=== PATIENT | female | born 1990 | race African-American/Black ===

== ENCOUNTER 2017-01-22 17:07 | Emergency (ER) | payer BC ==
[2017-01-22 17:16] VITALS: BMI 37.0
[2017-01-22 18:02] LABS: URINE APPEARANCE CLEAR; URINE BILIRUBIN NEGATIVE (NEGATIVE); URINE BLOOD 1+ (NEGATIVE); URINE COLOR YELLOW; URINE GLUCOSE (UA) NEGATIVE (NEGATIVE); URINE KETONE NEGATIVE (NEGATIVE); URINE LEUK ESTERASE NEGATIVE (NEGATIVE); URINE NITRITE NEGATIVE (NEGATIVE); URINE PROTEIN NEGATIVE (NEGATIVE)
[2017-01-22 18:09] LABS: URINE MUCUS RARE; URINE RBC 6 /hpf (0-3); URINE WBC 2 /hpf (3-5)
[2017-01-22 18:43] LABS: BASOPHIL 1.2 % (0-2.0); EOSINOPHIL 2.1 % (0-4.5); MCH 25.7 pg (25.7-33.7); MCHC 33.5 g/dl (32.0-36.0); MEAN CELL VOLUME 76.7 fl (80-96); MEAN PLT VOLUME 8.9 fl (7.5-11.1); NEUTROPHILS 53.8 % (42.8-82.8); PLATELET COUNT 349 K/MM3 (134-434); WHITE BLOOD COUNT 9.1 K/mm3 (4.0-10.0)
--- NOTE | 2017-01-22 18:59 | PDOC ---
History of Present Illness - General Chief Complaint: Lightheaded Stated Complaint: NASAL BLEEDING Time Seen by Provider: 01/22/17 18:58 - History of Present Illness Initial Comments: 01/22/17 19:33 Patient is a 26-year-old female with past medical history of right-sided ovarian cyst who presents to the emergency department today complaining of generalized abdominal pain. Patient states that she has a cyst on her left side which she calls a fat cyst and she states that this is the source of her pain. She currently rates her pain a 3 out of 10. She states that the pain is colicky in nature and comes and goes. Her pain has been occurring for approximately 24- 48 hours. She states that she is also lightheaded and that her head feels heavy. She states that she also feels like she cannot urinate. She denies that the room is spinning. Denies nausea and vomiting. Denies fevers, chills, cough, shortness of breath, chest pain, hematuria, dysuria, urgency. Past History - Travel Traveled outside of the country in the last 30 days: No Close contact w/someone who was outside of country & ill: No - Past Medical History Allergies/Adverse Reactions: Allergies Allergy/AdvReac Type Severity Reaction Status Date / Time No Known Allergies Allergy Verified 01/22/17 17:12 Home Medications: Ambulatory Orders NK [No Known Home Medication] 01/22/17 Other medical history: DENIES. - Psycho/Social/Smoking Cessation Hx Suicidal Ideation: No Smoking History: Never smoked Review of Systems - Review of Systems Constitutional: No: Chills, Fever, Malaise, Weakness Respiratory: No: Cough, Shortness of Breath, Wheezing Cardiac (ROS): Yes: Lightheadedness. No: Chest Pain, Palpitations, Syncope, Chest Tightness ABD/GI: Yes: Abdominal cramping. No: Constipated, Diarrhea, Nausea, Vomiting : Yes: Pain (R sided abd pain, cyst related?). No: Burning, Dysuria, Discharge, Frequency, Hematuria Neurological: Yes: Dizziness. No: Headache, Numbness, Paresthesia, Weakness All Other Systems: Reviewed and Negative *Physical Exam - Vital Signs Last Vital Signs Temp Pulse Resp BP Pulse Ox 98.5 F 71 19 143/74 100 01/22/17 17:12 01/22/17 17:12 01/22/17 17:12 01/22/17 17:12 01/22/17 17:12 - Physical Exam Comments: 01/22/17 19:34 GENERAL: Well developed, well nourished. Awake and alert. No acute distress, laying on exam bed. HEENT: Normocephalic, atraumatic. PERRLA, EOMI. No conjunctival pallor. Sclera are non- icteric. Moist mucous membranes. Oropharynx is clear. NECK: Supple. Full ROM. No JVD. Carotid pulses 2+ and symmetric, without bruits. No thyromegaly. No lymphadenopathy. CARDIOVASCULAR: Regular rate and rhythm. No murmurs, rubs, or gallops. Distal pulses are 2+ and symmetric. PULMONARY: No evidence of respiratory distress. Lungs clear to auscultation bilaterally. No wheezing, rales or rhonchi. ABDOMINAL: Abdomen is diffusely tender with point tenderness in the epigastric region. Also tender to paplation of the r inguinal region.Soft. Non-distended. No rebound or guarding. No organomegaly. Normoactive bowel sounds. MUSCULOSKELETAL Normal range of motion at all joints. No bony deformities or tenderness. No CVA tenderness. EXTREMITIES: No cyanosis. No clubbing. No edema. No calf tenderness. SKIN: Warm and dry. Normal capillary refill. No rashes. No jaundice. NEUROLOGICAL: Alert, awake, appropriate. Cranial nerves 2-12 intact. No deficits to light touch and temperature in face, upper extremities and lower extremities. No motor deficits in the in face, upper extremities and lower extremities. Normoreflexic in the upper and lower extremities. Normal speech. Toes are down- going bilaterally. Gait is normal without ataxia. PSYCHIATRIC: Cooperative. Good eye contact. Appropriate mood and affect. ED Treatment Course - LABORATORY CBC & Chemistry Diagram: 01/22/17 18:32 01/22/17 18:32 - ADDITIONAL ORDERS Additional order review: Laboratory Results 01/22/17 17:50 Urine Color Yellow Urine Appearance Clear Urine pH 5.0 Urine Protein Negative Urine Glucose (UA) Negative Urine Ketones Negative Urine Blood 1+ H Urine Nitrite Negative Urine Bilirubin Negative Urine Urobilinogen 2.0 H Ur Leukocyte Esterase Negative Urine RBC 6 Urine WBC 2 Ur Epithelial Cells Rare Urine Mucus Rare Urine HCG, Qual Negative Medical Decision Making - Medical Decision Making 01/22/17 19:41 Patient is a 26-year-old female with past medical history of right-sided ovarian cyst who presents to the emergency department today complaining of generalized abdominal pain. Patient's pain is generalized and could be from multiple causes. Diagnosis includes but not limited to ovarian cyst rupture, hernia, diverticulitis, appendicitis. We will order broad workup at this time. 1. CBC, CMP, lipase, UA, Upregnancy 2. fluids, ibuprofen 3. CT of abdomen and pelvis, transvaginal ultrasound 4. re-evaluate 01/22/17 22:18 Transvaginal ultrasound shows a normal appearing uterus and L ovary. Slightly hyperechoic masslike lesion in the right ovary/adnexa measuring approximately 3 cm with vascular flow suggestive of a mass. Further characterization with MRI of the pelvis as needed to evaluate for fatty tissue/dermoid among other possibilities. CT-scan: Hyperdense mass lesion in the right knee pelvis/adnexa measuring 4.3 cm in maximum dimension that appeared echogenic vascular mass in the right ovary on a prior pelvis ultrasound done earlier today. Further characterization with the MRI of the pelvis is recommended. 01/23/17 00:49 Lab work is unremarkable at this time and her urine is clean. Patient states that her pain is controlled with ibuprofen. She feels better after resting. Patient was informed of her ultrasound and CAT scan reports. She was told she is to follow-up with her DIGITAL TECHNICIAN within 1 week as this mass needs further workup. Explained it was a very unlikely circumstance but there is a possibility that this mass could be cancer. It was stressed that she should follow up with her DIGITAL TECHNICIAN as soon as she can. She was given a copy of her report. Patient feels comfortable with discharge at this time. She understands that she does need to follow-up. Explained that she should take Motrin as needed for pain. All questions were answered at this time and patient understands all discharge instructions. *DC/Admit/Observation/Transfer Diagnosis at time of Disposition: Ovarian mass, right - Discharge Dispostion Disposition: HOME Condition at time of disposition: Improved Admit: No - Referrals Referrals: Martínez Larson MD [Primary Care Provider] - Sebastian Santiago [Non Staff, Medical] - - Patient Instructions Printed Discharge Instructions: DI for Abdominal Pain-Adult Additional Instructions: You scans today showed a mass/cyst on your right ovary. You need to follow up with your DIGITAL TECHNICIAN doctor (Dr. Santiago) on Wednesday for further work up and cancer should be ruled out. You were given a copy of your report. You may take ibuprofen as needed for pain. You may take up to 3,000 mg a day. Take this medication with food. Return to the ED if you have worsening pain, lightheadedness, fevers, chills, nausea, or any changes in your symptoms.
[2017-01-22 19:04] LABS: ALBUMIN 3.5 g/dl (3.4-5.0); ALK PHOS 109 U/L (45-117); ANION GAP 6 (8-16); BILIRUBIN,TOTAL 0.2 mg/dL (0.2-1.0); CALCIUM 8.9 mg/dL (8.5-10.1); CO2 29 mmol/L (21-32); CREATININE 0.6 mg/dL (0.55-1.02); GLUCOSE,RANDOM 94 mg/dL (74-106); SGOT/AST 20 U/L (15-37); SGPT/ALT 35 U/L (12-78); TOT PROT 7.1 g/dl (6.4-8.2)
[2017-01-22] MEDS ORDERED: SODIUM CHLORIDE 1,000 ML IV STA (19:16)
[2017-01-22] MEDS ORDERED: IBUPROFEN 600 MG TABLET (FP) PO ONE ×2 (19:16→19:20)
--- NOTE | 2017-01-22 20:00 | PDOC ---
Attending Attestation - Resident Resident Name: ViktoriyarosamariaMercedez - ED Attending Attestation I have performed the following: I have examined & evaluated the patient, The case was reviewed & discussed with the resident, I agree w/resident's findings & plan, Exceptions are as noted - HPI HPI: 01/22/17 19:56 26-year-old female with no medical history presents with lower abdominal pain starting this morning. Patient reports diffuse lower abdominal pain with cramping this. Denies dysuria. Denies fevers or chills. Came into the ED for further evaluation. Patient reports that she is currently on her period now and has a history of ovarian cysts. - Physicial Exam PE: 01/22/17 19:57 GENERAL: Awake, alert, and fully oriented, in no acute distress. HEAD: No signs of trauma EYES: PERRLA, EOMI, sclera anicteric, conjunctiva clear ENT: Auricles normal inspection, hearing grossly normal, nares patent, oropharynx clear without exudates. NECK: Normal ROM, supple, no lymphadenopathy, JVD, or masses LUNGS: Breath sounds equal, clear to auscultation bilaterally. No wheezes, and no crackles HEART: Regular rate and rhythm, normal S1 and S2, no murmurs, rubs or gallops ABDOMEN: TTP LLQ, suprapubic, RLQ. Soft, normoactive bowel sounds. No guarding , no rebound. No masses EXTREMITIES: Normal range of motion, no edema. No clubbing or cyanosis. No cords, erythema, or tenderness NEUROLOGICAL: Cranial nerves II through XII grossly intact. Normal speech, normal gait SKIN: Warm, Dry, normal turgor, no rashes or lesions noted. - Medical Decision Making 01/22/17 19:58 Vital Signs Temp Pulse Resp BP Pulse Ox 98.5 F 55 L 17 116/76 100 01/22/17 17:12 01/22/17 19:18 01/22/17 19:18 01/22/17 19:18 01/22/17 19:18 26-year-old female lower abdominal pain. Differential includes appendicitis versus ovarian cyst rupture. We'll obtain labs, urinalysis. Patient is urine test negative. Patient should receive a CAT scan the abdomen pelvis and transvaginal ultrasound.
[2017-01-22 23:31] VITALS: BP 127/85; PULSE 61; TEMP 98.2
== END 2017-01-22 23:31 | disposition home or self-care (01) ==
LOC: JER 17:07
PROC: 3E0337Z Introduction of Electrolytic and Water Balance Substance into Peripheral Vein, Percutaneous Approach (ICD-10-PCS; principal; 2017-01-22)
DX: N83.8 Other noninflammatory disorders of ovary, fallopian tube and broad ligament (principal)
CPT/HCPCS: 36415; 74177-TC; 76830-TC; 80053; 81003; 81015; 83690; 84703; 85025; 99284-25

== ENCOUNTER 2017-09-21 04:02 | Observation (INO) | payer BC, OTHER ==
[2017-09-21 04:25] VITALS: BMI 28.3
--- NOTE | 2017-09-21 04:25 | PDOC ---
History of Present Illness - General Chief Complaint: Pain, Acute Stated Complaint: ABD PAIN 16 WEEKS Time Seen by Provider: 09/21/17 04:11 - History of Present Illness Initial Comments: 09/21/17 04:24 Patient is a 27 year old female @ a self-reported 16 weeks gestation and PMH of fibroids presents with a two day h/o of abdominal cramping. Patient states the cramping is constant, diffuse, exacerbated by movement (5/10 @ rest, 10/10 w/movement). Denies any associated vaginal bleeding, nausea/vomiting, diarrhea/constipation, dysuria/hematuria as well as fevers/chills. OB-[employer] in [place], most recent evaluation earlier this month at which time she was told everything was normal. Patient denies any chest pain, shortness of breath, recent travel or sick contacts. As per EMR, patient evaluated at our facility in 01/14 @ [address] time abdominal CT showed R adenxal mass. Past History - Past Medical History Allergies/Adverse Reactions: Allergies Allergy/AdvReac Type Severity Reaction Status Date / Time No Known Allergies Allergy Verified 01/22/17 17:12 Home Medications: Ambulatory Orders NK [No Known Home Medication] 01/22/17 - Suicide/Smoking/Psychosocial Hx Smoking History: Never smoked Have you smoked in the past 12 months: No Information on smoking cessation initiated: No Hx Alcohol Use: No Drug/Substance Use Hx: No Review of Systems - Review of Systems Constitutional: No: Chills, Fever HEENTM: No: Recent change in vision Respiratory: No: Cough, Shortness of Breath Cardiac (ROS): No: Chest Pain, Lightheadedness, Palpitations, Syncope ABD/GI: No: Constipated, Diarrhea, Nausea, Vomiting : No: Burning, Dysuria *Physical Exam - Vital Signs Last Vital Signs Temp Pulse Resp BP Pulse Ox 97.5 F L 82 20 122/63 97 09/21/17 04:22 09/21/17 04:22 09/21/17 04:22 09/21/17 04:22 09/21/17 04:22 - Physical Exam General Appearance: Yes: Nourished, Appropriately Dressed HEENT: positive: EOMI Neck: positive: Trachea midline, Supple Respiratory/Chest: positive: Lungs Clear Cardiovascular: positive: S1, S2. negative: Edema, JVD Vascular Pulses: Dorsalis-Pedis (R): 2+, Doralis-Pedis (L): 2+ Gastrointestinal/Abdominal: positive: Normal Bowel Sounds, Soft, Tenderness ( diffuse abdominal TTP, (-) guarding, (-) rebound), Other (Uterine fundus above pubic symphysis) Musculoskeletal: negative: CVA Tenderness (R), CVA Tenderness (L) Extremity: positive: Normal Capillary Refill, Normal Inspection Integumentary: positive: Normal Color, Dry, Warm Neurologic: positive: Fully Oriented, Alert ED Treatment Course - LABORATORY CBC & Chemistry Diagram: 09/21/17 05:00 09/21/17 05:00 Medical Decision Making - Medical Decision Making 09/21/17 04:32 27 year old female @ self-reported 16 weeks gestation presents with abdominal cramping without vaginal bleeding. Physical exam significant for diffuse abdominal tenderness, Mckenna's sign equivocal. Willl obtain basic labs, belly labs UA, Type and Screen as well as abdominal U/S. Reassess. 09/21/17 05:35 WBC 11.5, CMP and belly labs pending. 09/21/17 06:06 Lipase wnL, Lactic Acid 1.0. UA pending. Patient resting comfortably. Will plan for abdominal U/S. 09/21/17 06:46 CMP unremarkable. UA clean. T/S pending to assess incidental need for Rhogram. B-HCG 28,566 c/w patient's reported gestational age. Patient to be signed out to day team with plan for abdominal and U/S. 09/21/17 07:17 Patient signed out to Dr. Jacinto (Resident) and Dr. Parnell (Attending) *DC/Admit/Observation/Transfer Diagnosis at time of Disposition: Abdominal pain - Referrals Referrals: Martínez Larson MD [Primary Care Provider] - - Patient Instructions - Post Discharge Activity
--- NOTE | 2017-09-21 04:53 | PDOC ---
Attending Attestation - Resident Resident Name: Maddy Prado - ED Attending Attestation I have performed the following: I have examined & evaluated the patient, The case was reviewed & discussed with the resident, I agree w/resident's findings & plan, Exceptions are as noted - HPI HPI: 09/21/17 04:50 27y F @ at approx 4 months gestation presents with abd pain/cramping x 2 days no associated fever/chills, n/v, diarrhea, dysuria, cp, sob, vag bleeding. on exam pt in n odistress but does have mild diffuse abd tenderness w/o erbound/ guarding ddx includes cholecystits, appendicits, cramping, will ck labs will ck US ua o r/o UTI will reassess - Physicial Exam PE: 09/23/17 17:35 see above - Medical Decision Making pt signed out to day team to reassess the pt and fu with US results
[2017-09-21 05:21] LABS: BASO % 0.7 % (0-2.0); EOS % 1.3 % (0-4.5); HEMATOCRIT 33.9 % (32.4-45.2); HEMOGLOBIN 11.6 GM/dL (10.7-15.3); LYMPH % 16.9 % (8-40); MCHC 34.1 g/dl (32.0-36.0); MEAN CELL VOLUME 76.3 fl (80-96); MONO % 8.1 % (3.8-10.2); PLATELET COUNT 383 K/MM3 (134-434); RBC 4.44 M/mm3 (3.60-5.2); RDW 14.7 % (11.6-15.6); WHITE BLOOD COUNT 11.5 K/mm3 (4.0-10.0)
[2017-09-21 05:22] LABS: URINE APPEARANCE CLEAR; URINE BILIRUBIN NEGATIVE (<2.0 mg/dL); URINE BLOOD NEGATIVE (NEGATIVE); URINE COLOR LTYELLOW; URINE GLUCOSE (UA) NEGATIVE (NEGATIVE); URINE KETONE NEGATIVE (NEGATIVE); URINE LEUK ESTERASE NEGATIVE (NEGATIVE); URINE NITRITE NEGATIVE (NEGATIVE); URINE PROTEIN NEGATIVE (NEGATIVE); URINE UROBILINOGEN NEGATIVE mg/dL (0.2-1.0)
[2017-09-21 05:55] LABS: ANION GAP 11 (8-16); BILIRUBIN,TOTAL 0.2 mg/dL (0.2-1.0); BLOOD UREA NITROGEN 6 mg/dL (7-18); CALCIUM 8.6 mg/dL (8.5-10.1); CHLORIDE 105 mmol/L (98-107); CO2 23 mmol/L (21-32); CREATININE 0.5 mg/dL (0.55-1.02); GLUCOSE,RANDOM 95 mg/dL (74-106); POTASSIUM 3.9 mmol/L (3.5-5.1); SGOT/AST 21 U/L (15-37); SGPT/ALT 36 U/L (12-78); SODIUM 139 mmol/L (136-145); TOT PROT 6.8 g/dl (6.4-8.2)
[2017-09-21 06:11] LABS: ALK PHOS 89 U/L (45-117)
[2017-09-21] MEDS ORDERED: ACETAMINOPHEN 500 MG TABLET (FP) PO ONE (07:14)
--- NOTE | 2017-09-21 07:25 | PDOC ---
*Physical Exam - Vital Signs Last Vital Signs Temp Pulse Resp BP Pulse Ox 97.5 F L 82 20 122/63 97 09/21/17 04:22 09/21/17 04:22 09/21/17 04:22 09/21/17 04:22 09/21/17 04:22 09/21/17 07:23 Care endorsed to me by Dr. Prado. Patient is a 27 YOF states ~16 wks and now with diffuse lower abdominal pain without VBP or discharge. Awaiting formal US; bedside ED US was not working overnight. Given Tylenol. ED Treatment Course - LABORATORY CBC & Chemistry Diagram: 09/21/17 05:00 09/21/17 05:00 - ADDITIONAL ORDERS Additional order review: Laboratory Results 09/21/17 09/21/17 09/21/17 05:00 05:00 05:00 Sodium 139 Potassium 3.9 Chloride 105 Carbon Dioxide 23 Anion Gap 11 BUN 6 L Creatinine 0.5 L Creat Clearance w eGFR > 60 Random Glucose 95 Lactic Acid 1.0 Calcium 8.6 Total Bilirubin 0.2 AST 21 ALT 36 Alkaline Phosphatase 89 Total Protein 6.8 Albumin 3.0 L Lipase 82 Beta HCG, Quant 10538.8 Urine Color Urine Appearance Urine pH Ur Specific [place] Urine Protein Urine Glucose (UA) Urine Ketones Urine Blood Urine Nitrite Urine Bilirubin Urine Urobilinogen Ur Leukocyte Esterase 09/21/17 05:00 Sodium Potassium Chloride Carbon Dioxide Anion Gap BUN Creatinine Creat Clearance w eGFR Random Glucose Lactic Acid Calcium Total Bilirubin AST ALT Alkaline Phosphatase Total Protein Albumin Lipase Beta HCG, Quant Urine Color Ltyellow Urine Appearance Clear Urine pH 6.0 Ur Specific [place] 1.014 Urine Protein Negative Urine Glucose (UA) Negative Urine Ketones Negative Urine Blood Negative Urine Nitrite Negative Urine Bilirubin Negative Urine Urobilinogen Negative Ur Leukocyte Esterase Negative 09/21/17 05:00 RBC 4.44 MCV 76.3 L MCHC 34.1 RDW 14.7 MPV 9.0 Neutrophils % 73.0 D Lymphocytes % 16.9 D Monocytes % 8.1 Eosinophils % 1.3 Basophils % 0.7 Medical Decision Making - Medical Decision Making 09/21/17 10:49 US notable for IUP appearing uncomplicated; no GB pathology identified. Patient reports still in pain but does not want any pain medication. 09/21/17 11:26 On re-exam patient continued to have RLQ and RUQ ttp, +rebound tenderness. Morphine ordered and patient will start drinking PO contrast in case she goes to CT r/o appendicitis. In the meantime will order formal US r/o appendicitis. 09/21/17 11:[address] Trivedi who will take the OR case if confirmed appendicitis. 09/21/17 14:03 Per radiology report the appendix is not visualized. Patient being taken to CT. *DC/Admit/Observation/Transfer Diagnosis at time of Disposition: Peritonitis, Leiomyoma, Abdominal pain Qualifiers: Abdominal location: right lower quadrant Qualified Code(s): R10.31 - Right lower quadrant pain - Discharge Dispostion Condition at time of disposition: Guarded Admit: Yes - Referrals Referrals: Martínez Larson MD [Primary Care Provider] - - Patient Instructions Printed Discharge Instructions: DI for Appendicitis -- Adult, Appendectomy -- Laparoscopic Surgery Additional Instructions: Postoperative instructions: You had a laparoscopic appendectomy on 09/21/[address] Dev Trivedi of [facility]. Activity: Resume your usual activities gradually, but no heavy exertion or lifting more than 10-15 pounds for 1 month. Remove dressings 48 hours after surgery; sticky tapes underneath will fall off by themselves. You may shower daily starting then, just pat the incision areas dry. Eat lightly at first, but advance to your usual diet as tolerated. Pain: For pain, you may use and alternate Tylenol (acetaminophen) and/or ibuprofen every 6 hours each as needed; this means that you can take one OR the other at 3-hour intervals. If you are prescribed a Tylenol/narcotic combination for severe pain, use it instead of plain Tylenol as needed and switch back when your pain starts decreasing. Do not take more than 4000mg of acetaminophen in a day. Take medications as prescribed or indicated on the labeling. Follow-up: Call Dr. Trivedi' office at [phone] to make your postop appointment (Wednesday ~2 weeks after surgery). Clinic is held in the [facility] on the first floor of [facility]. Call the office if you have: * increasing pain not responsive to pain medication * fever of 101F or higher * vomiting * unusual or increasing bleeding or drainage from wounds * increasing redness or swelling at wound sites * inability to urinate Also, see your primary medical doctor within 1-2 weeks. - Post Discharge Activity
[2017-09-21] MEDS ORDERED: ACETAMINOPHEN 325 MG TABLET (FP) ONE (07:30)
[2017-09-21] MEDS ORDERED: morphine SULFATE 4 MG/ML VIAL ONE (11:26)
[2017-09-21] MEDS ORDERED: morphine CARPU-JECT 4 MG/1 ML DISP.SYRIN IVPUSH ONE (11:27)
--- NOTE | 2017-09-21 11:31 | PDOC ---
*Physical Exam - Vital Signs Last Vital Signs Temp Pulse Resp BP Pulse Ox 97.5 F L 68 20 97/55 100 09/21/17 04:22 09/21/17 09:05 09/21/17 04:22 09/21/17 09:05 09/21/17 09:05 - Physical Exam Comments: 09/21/17 11:29 alert, well appearing but with discomfort abd gravid. soft/nd. tender with guarding and rebound to the [facility] ED Treatment Course - LABORATORY CBC & Chemistry Diagram: 09/21/17 05:00 09/21/17 05:00 - ADDITIONAL ORDERS Additional order review: Laboratory Results 09/21/17 09/21/17 09/21/17 05:00 05:00 05:00 Sodium Potassium Chloride Carbon Dioxide Anion Gap BUN Creatinine Creat Clearance w eGFR Random Glucose Lactic Acid 1.0 Calcium Total Bilirubin AST ALT Alkaline Phosphatase Total Protein Albumin Lipase 82 Beta HCG, Quant Urine Color Urine Appearance Urine pH Ur Specific [place] Urine Protein Urine Glucose (UA) Urine Ketones Urine Blood Urine Nitrite Urine Bilirubin Urine Urobilinogen Ur Leukocyte Esterase Blood Type O POSITIVE Antibody Screen Negative 09/21/17 09/21/17 05:00 05:00 Sodium 139 Potassium 3.9 Chloride 105 Carbon Dioxide 23 Anion Gap 11 BUN 6 L Creatinine 0.5 L Creat Clearance w eGFR > 60 Random Glucose 95 Lactic Acid Calcium 8.6 Total Bilirubin 0.2 AST 21 ALT 36 Alkaline Phosphatase 89 Total Protein 6.8 Albumin 3.0 L Lipase Beta HCG, Quant 30257.8 Urine Color Ltyellow Urine Appearance Clear Urine pH 6.0 Ur Specific [place] 1.014 Urine Protein Negative Urine Glucose (UA) Negative Urine Ketones Negative Urine Blood Negative Urine Nitrite Negative Urine Bilirubin Negative Urine Urobilinogen Negative Ur Leukocyte Esterase Negative Blood Type Antibody Screen 09/21/17 05:00 RBC 4.44 MCV 76.3 L MCHC 34.1 RDW 14.7 MPV 9.0 Neutrophils % 73.0 D Lymphocytes % 16.9 D Monocytes % 8.1 Eosinophils % 1.3 Basophils % 0.7 - Medications Given in the ED: ED Medications Discontinued Medications Generic Name Dose Route Start Last Admin Trade Name Freq PRN Reason Stop Dose Admin Acetaminophen 975 mg 09/21/17 07:14 09/21/17 07:35 Tylenol - PO 09/21/17 07:15 975 mg ONCE ONE Administration Medical Decision Making - Medical Decision Making 09/21/17 11:29 Received signout on this healthy 27-year-old female with no surgical history at about 16 weeks gestation who presented with vague abdominal complaints and progressive pain since last night. Labs are within normal limits, plan at sign out was to check and right upper quadrant ultrasound and reassess. Patient's pain has continued to progress, she is now having peritoneal findings in the right lower quadrant. Presentation is concerning for appendicitis and , warrants further imaging. We'll attempt abdominal ultrasound to identify the appendix, otherwise should have CAT scan given the emergent nature of appendicitis. Discussed with patient and she agrees Pain control, abdominal ultrasound to identify appendix, CT if unable to identify on ultrasound 09/21/17 15:[address] Trivedi of general surgery and radiology - plan for OR. U/S inconclusive for appendicitis. Will attempt MRI pelvis then proceed with OR. Accepted for obs med/surg. 09/21/17 17:18 At MRI with plans for OR. Discussed with admitting team and OB Dr. Travis. Pt to be admitted to L+D for monitoring. 09/21/17 17:51 After extensive discussion with all members of team: MRI with degenerated superior R uterine fibroid and otherwise normal appearing appendix. Per drapery sewer hand, fibroid could explain patient's presentation. Discussed with Dr. Trivedi and Dr. Travis, will hold on OR for now and proceed with admission for serial exams and pain control. Given gestation of 16 weeks, no indication for constant monitoring per OB. Can admit to med/surg bed under medicine team with OB and Surgery following. Team updated. *DC/Admit/Observation/Transfer Diagnosis at time of Disposition: Peritonitis, Leiomyoma, Abdominal pain Qualifiers: Abdominal location: right lower quadrant Qualified Code(s): R10.31 - Right lower quadrant pain - Discharge Dispostion Condition at time of disposition: Guarded - Referrals - Patient Instructions - Post Discharge Activity
[2017-09-21] MEDS ORDERED: PIPERACILLIN/TAZOB 4.5 GM 4.5 GM in DEXTROSE 5%-WATER 100 ML IVPB ONE (11:55)
[2017-09-21] MEDS ORDERED: PIPERACILLIN/TAZOB 4.5 GM 4.5 GM/100 ML BAG IVPB ONE (12:05)
[2017-09-21] MEDS ORDERED: SODIUM CHLORIDE 0.9% 500 ML INFUS.BAG IV ONE (12:13)
--- NOTE | 2017-09-21 14:54 | CONSULT ---
Consult Consult Specialty:: General Surgery Referred by:: Columba Reason for Consultation:: abdominal pain - History of Present Illness Chief Complaint: Abdominal pain History of Present Illness: 27yo female 16weeks gestation no significant PMH presents to the the ED complaining of 2 days or right lower quadrant pain. She has never had a similar pain. She has a history of right sided uterine fibroids. It was identified in a scan in 2017 subserosal and pedunculated. She reports now pain is focal on the right upper and lower abdomen. She denies any nausea or vomiting. She has not had fever or chills. She has not had any appetitie. Last meal was last evening. We were asked to assess. - History Source History Provided By: Patient, Medical Record Limitations to Obtaining History: No Limitations - Past Medical History Reproductive: Yes: Fibroids. No: Ectopic , Endometriosis, Polycystic Ovary Syndrome, Postmenopausal ...LMP Comment: Certain of ...: Yes (16 wks) ...: 1 ...Para: 0 - Alcohol/Substance Use Hx Alcohol Use: No - Smoking History Smoking history: Never smoked Have you smoked in the past 12 months: No - Social History Place of : [facility] History of Recent Travel: No Home Medications - Allergies Allergies/Adverse Reactions: Allergies Allergy/AdvReac Type Severity Reaction Status Date / Time No Known Allergies Allergy Verified 01/22/17 17:12 - Home Medications Home Medications: Ambulatory Orders NK [No Known Home Medication] 01/22/17 Review of Systems - Review of Systems Constitutional: reports: Loss of Appetite. denies: Chills, Fever Eyes: denies: Blind Spots, Recent Change in Vision HENT: denies: Difficult Swallowing Respiratory: denies: Cough, SOB Gastrointestinal: reports: Abdominal Pain. denies: Constipation, Diarrhea, Nausea, Vomiting Genitourinary: reports: Frequency. denies: Discharge, Dysuria, Menses Breasts: reports: No Symptoms Reported. denies: Pain Neurological: denies: Syncope, Tremors Endocrine: denies: Unexplained Weight Gain, Unexplained Weight Loss Hematology/Lymphatic: denies: Easily Bruised, Excessive Bleeding Psychiatric: denies: Anxiety, Depression Physical Exam Vital Signs: Vital Signs Temperature 97.5 F L 09/21/17 04:22 Pulse Rate 76 09/21/17 12:08 Respiratory Rate 20 09/21/17 04:22 Blood Pressure 94/47 09/21/17 12:08 O2 Sat by Pulse Oximetry (%) 100 09/21/17 09:05 Constitutional: Yes: No Distress, Calm Eyes: Yes: Conjunctiva Clear, EOM Intact HENT: Yes: Atraumatic, Normocephalic Neck: Yes: Supple, Trachea Midline Cardiovascular: Yes: Regular Rate and Rhythm, S1, S2 Respiratory: No: Regular, CTA Bilaterally Gastrointestinal: Yes: Normal Bowel Sounds, Soft, Abdomen, Obese, Tenderness ( RLQ), Tenderness, Rebound (RLQ and RUQ), Other (gravis -3cm below umbilicus,). No: Hematemesis, Hernia, Hypoactive Bowel Sounds, Tenderness, Epigastrium ...Rectal Exam: Yes: Sphincter Tone Normal. No: Hemorrhoids/External, Mass Renal/: No: CVA Tenderness - Left, CVA Tenderness - Right Extremities: No: Cool, Cyanosis Edema: No Peripheral Pulses WNL: Yes Integumentary: No: Bruising, Jaundice, Rash Neurological: Yes: Alert Psychiatric: Yes: Alert, Oriented Labs: CBC, BMP 09/21/17 05:00 09/21/17 05:00 Imaging - Results Ultrasound: Report Reviewed, Image Reviewed (no appendix seen, 7cm right fibroid right anteriro uterus) MRI: Pending, Image Reviewed Problem List - Problems (1) complicated by acute appendicitis Assessment/Plan: 27 yo female 16weeks gestation RLQ pain possible acute appendicitis, leukocytois 11.5, not visualized on US, Adjacent is her peduculated subserosal right uterine fibroid 4.5cm to 7cm over the course of a year. The findings are confounding but the risk of demise during pregnacny has been reported as high as 75%. After discussing this with the patient she understands the risks associated with both non-operative, delayed and operative management. NPO and IVF IV antibiotics (reccomend IV mefoxin) CT scan or MRI to establish diagnosis if possible Pre and post anesthesia heart monitoring Discussed with MEDICAL STAFF PHYSICIAN the plan they agree Discussed at length with patient and mother risks, benefits and alternatives of laparoscopic possible open appendectomy, including but not limited to demise, bleeding, infection, injury to adjacent structures, ventral and incisional hernia, leak or injury, intra-abdominal abscess, need for further procedures, ; alternatives include antibiotics, delayed or no surgery - risks of this include failure of nonoperative therapy, perforation, sepsis, recurrence, demise . Patient desires to proceed with operation - will take to OR for above. Informed consent signed for same. Code(s): O99.619 - DISEASES OF THE DGSTV SYS COMP , UNSP TRIMESTER; K35.80 - UNSPECIFIED ACUTE APPENDICITIS (2) Acute appendicitis with localized peritonitis Code(s): K35.3 - ACUTE APPENDICITIS WITH LOCALIZED PERITONITIS (3) Abdominal pain Code(s): R10.9 - UNSPECIFIED ABDOMINAL PAIN Qualifiers: Abdominal location: right lower quadrant Qualified Code(s): R10.31 - Right lower quadrant pain (4) Ovarian mass, right Code(s): N83.9 - NONINFLAMMATORY DISORD OF OVARY, FALLOP & BROAD LIGMT, UNSP
--- NOTE | 2017-09-21 18:54 | HP ---
CHIEF COMPLAINT: pain abdomen HISTORY OF PRESENT ILLNESS: Patient is a 27 year old female @ a self- reported 16 weeks gestation and PMH of fibroids presents with a two day h/o of abdominal pain cramping in nature, 9/10 in intensity, non radiating, started in left side then moved to right side, constant, get better in lying down position , increases with sitting position. Denies nausea, vomiting, diarrhoea, constipation( last bowel movement yesterday). Denies blood in stool, denies burning micturation, blood in urine. Denies spotting through vagina. Denies fever and chills. OB-[facility] in [place], most recent evaluation earlier this month at which time she was told everything was normal. Patient denies any chest pain, shortness of breath, recent travel or sick contacts. IN ed patient got iv fluid, zosyn. mri and ultrasound ER course was notable for: (1)cbc, cmp, inr (2)mri (3)IV fluid Recent Travel: no PAST MEDICAL HISTORY: fibroid uterus PAST SURGICAL HISTORY: no Social History: Smoking: no Alcohol:no Drugs: no Family History: Allergies no No Known Allergies Allergy (Verified 01/22/17 17:12) HOME MEDICATIONS: Home Medications Medication Instructions Recorded NK [No Known Home Medication] 01/22/17 REVIEW OF SYSTEMS CONSTITUTIONAL: Absent: fever, chills, diaphoresis, generalized weakness, malaise, loss of appetite, weight change HEENT: Absent: rhinorrhea, nasal congestion, throat pain, throat swelling, difficulty swallowing, mouth swelling, ear pain, eye pain, visual changes CARDIOVASCULAR: Absent: chest pain, syncope, palpitations, irregular heart rate, lightheadedness , peripheral edema RESPIRATORY: Absent: cough, shortness of breath, dyspnea with exertion, orthopnea, wheezing, stridor, hemoptysis GASTROINTESTINAL: as above. GENITOURINARY: Absent: dysuria, frequency, urgency, hesitancy, hematuria, flank pain, genital pain MUSCULOSKELETAL: Absent: myalgia, arthralgia, joint swelling, back pain, neck pain SKIN: Absent: rash, itching, pallor HEMATOLOGIC/IMMUNOLOGIC: Absent: easy bleeding, easy bruising, lymphadenopathy, frequent infections ENDOCRINE: Absent: unexplained weight gain, unexplained weight loss, heat intolerance, cold intolerance NEUROLOGIC: Absent: headache, focal weakness or paresthesias, dizziness, unsteady gait, seizure, mental status changes, bladder or bowel incontinence PSYCHIATRIC: Absent: anxiety, depression, suicidal or homicidal ideation, hallucinations. PHYSICAL EXAMINATION Vital Signs - 24 hr 09/21/17 09/21/17 09/21/17 04:22 09:05 12:08 Temperature 97.5 F L Pulse Rate 82 Pulse Rate [ 68 76 Apical] Respiratory 20 Rate Blood Pressure 122/63 Blood Pressure 97/55 94/47 [Left Arm] O2 Sat by Pulse 97 100 Oximetry (%) 09/21/17 16:08 Temperature 95.5 F L Pulse Rate Pulse Rate [ 69 Apical] Respiratory Rate Blood Pressure Blood Pressure 104/53 [Left Arm] O2 Sat by Pulse 95 Oximetry (%) GENERAL: Awake, alert, and fully oriented, in no acute distress. HEAD: Normal with no signs of trauma. EYES: Pupils equal, round and reactive to light, extraocular movements intact, EARS, NOSE, THROAT: Ears normal, nares patent, oropharynx clear without exudates. dry mucous membranes. NECK: Normal range of motion, supple without lymphadenopathy, LUNGS: Breath sounds equal, clear to auscultation bilaterally. HEART: Regular rate and rhythm, normal S1 and S2 without murmur, rub or gallop. ABDOMEN: tender in LLQ, reboundtendernes LLQ, no guarding, no rigidity, MUSCULOSKELETAL: Normal range of motion at all joints. No bony deformities or tenderness. UPPER EXTREMITIES: 2+ pulses, warm, well-perfused. No cyanosis. No clubbing. LOWER EXTREMITIES: 2+ pulses, warm, well-perfused. No calf tenderness. No peripheral edema. NEUROLOGICAL: Cranial nerves II-XII intact. Normal speech. PSYCHIATRIC: Cooperative. Good eye contact. SKIN: Warm, dry, normal turgor, Laboratory Results - last 24 hr 09/21/17 09/21/17 09/21/17 05:00 05:00 05:00 WBC 11.5 H RBC 4.44 Hgb 11.6 Hct 33.9 MCV 76.3 L MCH 26.0 MCHC 34.1 RDW 14.7 Plt Count 383 MPV 9.0 Neutrophils % 73.0 D Lymphocytes % 16.9 D Monocytes % 8.1 Eosinophils % 1.3 Basophils % 0.7 Sodium 139 Potassium 3.9 Chloride 105 Carbon Dioxide 23 Anion Gap 11 BUN 6 L Creatinine 0.5 L Creat Clearance w eGFR > 60 Random Glucose 95 Lactic Acid Calcium 8.6 Total Bilirubin 0.2 AST 21 ALT 36 Alkaline Phosphatase 89 Total Protein 6.8 Albumin 3.0 L Lipase Beta HCG, Quant 73412.8 Urine Color Ltyellow Urine Appearance Clear Urine pH 6.0 Ur Specific Witten 1.014 Urine Protein Negative Urine Glucose (UA) Negative Urine Ketones Negative Urine Blood Negative Urine Nitrite Negative Urine Bilirubin Negative Urine Urobilinogen Negative Ur Leukocyte Esterase Negative Blood Type Antibody Screen 09/21/17 09/21/17 09/21/17 05:00 05:00 05:00 WBC RBC Hgb Hct MCV MCH MCHC RDW Plt Count MPV Neutrophils % Lymphocytes % Monocytes % Eosinophils % Basophils % Sodium Potassium Chloride Carbon Dioxide Anion Gap BUN Creatinine Creat Clearance w eGFR Random Glucose Lactic Acid 1.0 Calcium Total Bilirubin AST ALT Alkaline Phosphatase Total Protein Albumin Lipase 82 Beta HCG, Quant Urine Color Urine Appearance Urine pH Ur Specific Witten Urine Protein Urine Glucose (UA) Urine Ketones Urine Blood Urine Nitrite Urine Bilirubin Urine Urobilinogen Ur Leukocyte Esterase Blood Type O POSITIVE Antibody Screen Negative ASSESSMENT/PLAN: Patient is a 27 year old female @ a self-reported 16 weeks gestation and PMH of fibroids presents with a two day h/o of abdominal pain. MRI shows pedunculated leomyoma with degenrative change. Pain abdomen with 16week : likely from degenrative leomyoma. Pain initially started in rlq then shifted to llq. IV fluid NS 150ml/hr tylenol for pain serial abdominal exam. monitor vitals monitor intake output surgery and ob- sand sifter on case. cbc in morning. MRI reviewed. ob-sand sifter will do a monitoring in am. If pain gets worse or develops tachycardia, call ob-sand sifter. Fluid: 150ml/hr, NS electrolyte: repeat in am nutrition: npo for now dvt pro: scd dispo: med surg. Visit type - Emergency Visit Emergency Visit: Yes ED Registration Date: 09/21/17 Care time: The patient presented to the Emergency Department on the above date and was hospitalized for further evaluation of their emergent condition. - New Patient This patient is new to me today: Yes Date on this admission: 09/21/17 - Critical Care Critical Care patient: No Hospitalist Screening - Colonoscopy Questionnaire Colonoscopy Questionnaire: Colonoscopy Questionnaire - Patient: 50 - 75 years old and never had a screening colonoscopy: Unknown History of colon or rectal polyps, or CA: Unknown History of IBD, Crohn's disease or UC: Unknown History of abdominal radiation therapy as a child: Unknown - Relative: 1 with colon or rectal CA, or polyps at age 60 or younger: Unknown Colon or rectal CA diagnosed at age 45 or younger: Unknown Multiple relatives with colon or rectal CA: Unknown - Outcome: Screening Result: Negative Screen
[2017-09-21] MEDS ORDERED: SODIUM CHLORIDE 1,000 ML IV SCH (19:00)
--- NOTE | 2017-09-21 19:32 | PN ---
Teaching Attending Note Name of Resident: Samuel Smith ATTENDING PHYSICIAN STATEMENT I saw and evaluated the patient. I reviewed the resident's note and discussed the case with the resident. I agree with the resident's findings and plan as documented with exceptions below. SUBJECTIVE: 27 yof with PMhx of uterine fibroid, 16 weeks , admitted with RLQ abdominal pain, and mild LLQ abdominal pain shifting to right, crampy, constant for last 2 days. No nausea, vomiting, fevers, chills, urinary symptoms. Able to tolerate diet well. 12 point ROS done, neg for any vaginal bleed, discharge or new concerns. Currently feels better after being treated in the ED. OBJECTIVE: Vital Signs Period Temp Pulse Resp BP Sys/Skelton Pulse Ox Last 24 Hr 95.5 F-97.5 F 68-82 20 94-122/47-63 95-100 Intake & Output 09/18/17 09/19/17 09/20/17 09/21/17 23:59 23:59 23:59 23:59 Weight 160 lb 0.008 oz GENERAL: Awake, alert, and fully oriented, in no acute distress. HEAD: Normal with no signs of trauma. EYES: Pupils equal, round and reactive to light, extraocular movements intact, sclera anicteric, conjunctiva clear. No lid lag. EARS, NOSE, THROAT: Ears normal, nares patent, oropharynx clear without exudates. Moist mucous membranes. NECK: soft, supple no JVD LUNGS: Breath sounds equal, clear to auscultation bilaterally. No wheezes, and no crackles. No accessory muscle use. HEART: S1S2 regular ABDOMEN: Soft, distended, RLQ rebound tenderness, minimal LLQ tenderness, no rigidity, no voluntary or involuntary guarding or rigidity MUSCULOSKELETAL: Normal range of motion at all joints. No bony deformities or tenderness. No CVA tenderness. UPPER EXTREMITIES: 2+ pulses, warm, well-perfused. No cyanosis. No clubbing. No peripheral edema. LOWER EXTREMITIES: 2+ pulses, warm, well-perfused. No calf tenderness. No peripheral edema. NEUROLOGICAL: Cranial nerves II-XII intact. Normal speech. PSYCHIATRIC: Cooperative. Good eye contact. Appropriate mood and affect. SKIN: Warm, dry, normal turgor, no rashes or lesions noted, normal capillary refill. Home Medication List Medication Instructions Recorded Confirmed Type NK [No Known Home Medication] 08/25/17 04/24/18 History Active Medications Generic Name Dose Route Start Last Admin Trade Name Freq PRN Reason Stop Dose Admin Acetaminophen 650 mg 09/21/17 19:14 Tylenol - PO Q6H PRN PAIN Sodium Chloride 1,000 mls @ 150 mls/hr 09/21/17 19:15 Normal Saline - IV [facility]IR [facility] Laboratory Results - last 24 hr 09/21/17 09/21/17 09/21/17 05:00 05:00 05:00 WBC 11.5 H RBC 4.44 Hgb 11.6 Hct 33.9 MCV 76.3 L MCH 26.0 MCHC 34.1 RDW 14.7 Plt Count 383 MPV 9.0 Neutrophils % 73.0 D Lymphocytes % 16.9 D Monocytes % 8.1 Eosinophils % 1.3 Basophils % 0.7 Sodium 139 Potassium 3.9 Chloride 105 Carbon Dioxide 23 Anion Gap 11 BUN 6 L Creatinine 0.5 L Creat Clearance w eGFR > 60 Random Glucose 95 Lactic Acid Calcium 8.6 Total Bilirubin 0.2 AST 21 ALT 36 Alkaline Phosphatase 89 Total Protein 6.8 Albumin 3.0 L Lipase Beta HCG, Quant 33260.8 Urine Color Ltyellow Urine Appearance Clear Urine pH 6.0 Ur Specific [place] 1.014 Urine Protein Negative Urine Glucose (UA) Negative Urine Ketones Negative Urine Blood Negative Urine Nitrite Negative Urine Bilirubin Negative Urine Urobilinogen Negative Ur Leukocyte Esterase Negative Blood Type Antibody Screen 09/21/17 09/21/17 09/21/17 05:00 05:00 05:00 WBC RBC Hgb Hct MCV MCH MCHC RDW Plt Count MPV Neutrophils % Lymphocytes % Monocytes % Eosinophils % Basophils % Sodium Potassium Chloride Carbon Dioxide Anion Gap BUN Creatinine Creat Clearance w eGFR Random Glucose Lactic Acid 1.0 Calcium Total Bilirubin AST ALT Alkaline Phosphatase Total Protein Albumin Lipase 82 Beta HCG, Quant Urine Color Urine Appearance Urine pH Ur Specific Lyons Urine Protein Urine Glucose (UA) Urine Ketones Urine Blood Urine Nitrite Urine Bilirubin Urine Urobilinogen Ur Leukocyte Esterase Blood Type O POSITIVE Antibody Screen Negative Abdominal US x 2 results reviewed Pelvis MRI results reviewed ASSESSMENT AND PLAN: 27 yof with uterine fibroid and 16 weeks admitted with abdominal pain. -Abdominal pain, shifting RLQ/LLQ -16 weeks -Pedunculated uterine leimyoma with degenerative changes. Plans: Patient seen by Dr. Trivedi and Dr. Munoz. Not concern for appendicitis based on imaging and exam currently. Degenerative changes in uterine fibroid, common with as discussed with Dr. Munoz. Red degeneration. Aggressive IVF and tylenol prn. hold off stronger pain control/narcotics and antibiotics as discussed. Defer FHR to OB, as discussed no indication for continuous monitoring given 16 weeks and no surgical plans currently. NPO overnight. Serial abdominal exams and vitals signs montoring. Patient educated in detail to instruct if any new or concerning symptoms. Trend CBC. DVTPPx with SCDs. Admit to obs, dispo planning in 24 hours if improves and no new concerns. Plan discussed with patient and family at bedside in detail, all questions answered.
--- NOTE | 2017-09-21 20:22 | CON.OBG ---
Consult Consult Specialty:: data architect manager Referred by:: Dr Sarah Baker Reason for Consultation:: 16 weeks pregnm RLQ Pain - History of Present Illness Chief Complaint: 27 Yrs , 16 weeks gestation , presented in ER today AM with h/o pain onset for 2 days in lower abdomen, more towards Rt side ,severe since today AM . no h/o vomiting, no h/o fever , no h/o urine symptoms History of Present Illness: pt has h/o fibroids known to her since 2013. 01/22/17 ct scan had shown fibroid size 4.9x 4.43.4 cm. pt has care [facility] in [place] . so far course was uneventful. ER Work up suspected AC appendicitis Abd sono liver, gall bladder , kidney normal. appemdix non visualised Ob sono rported 16.4 weeks, SLIUP, , breech, post placenta, no previa , Uterine fundal fibroid 7.4x6.1 cm MRI pelvis , rt side 7.8x7.3x6 cm pedunculated fobroid , proximal to cecum, centre of fibroid degenration noted, compare to previous ct scan in 12/2016, fibroid is enlarged in size appendix visualised post to fibroids , no inflamation suspected . Surgical consult was obtained , after MRI appendicitis wass ruled out pt is admitted under observation for suspected localized peritoneal signs , fibroid degenration pt denies h/o std h/o UtI in past . past MH reg periods . contraception none No infertility work up. natural - History Source History Provided By: Patient Limitations to Obtaining History: No Limitations - Past Medical History PET HANDLER: No: Migraine, Seizure Cardio/Vascular: No: HTN, Murmur Pulmonary: No: Asthma Gastrointestinal: No: Gastritis, Other (no vomiting ) Hepatobiliary: No: Cholelithiasis Renal/: Yes: UTI (in past ) Reproductive: Yes: Fibroids (since 2013, enarged during current pregn ) ...LMP: 05/29/17 (EDC by 09/21/17 sono 03/06/2018 ) ...LMP Comment: Certain of ...: Yes (16 wks) ...: 1 ...Para: 0 Heme/Onc: No: Anemia Infectious Disease: No: STD's Endocrine: No: Diabetes Mellitus, Hypothyroidism - Past Surgical History Past Surgical History: Yes: None - Alcohol/Substance Use Hx Alcohol Use: No History of Substance Use: reports: None - Smoking History Smoking history: Never smoked Have you smoked in the past 12 months: No - Social History History of Recent Travel: No Home Medications - Allergies Allergies/Adverse Reactions: Allergies Allergy/AdvReac Type Severity Reaction Status Date / Time No Known Allergies Allergy Verified 01/22/17 17:12 - Home Medications Home Medications: Ambulatory Orders NK [No Known Home Medication] 01/22/17 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 No: CVA Tenderness - Left, CVA Tenderness - Right Pelvis: Yes: Tenderness (lower abd . mainly RMQ . deep tederness. rebound tenderness not noted) External Genitalia: Yes: Normal Internal Exam Deferred: Yes Vaginal Exam: Yes: Normal, Discharge. No: Bleeding Cervix: Yes: Normal, Other (cx close). No: Bleeding, Cerv Motion Tenderness Uterus: Yes: Enlarged (16 weeks size FPF FhS 148 midline) Adnexa: Not Palpable: Bilateral Breast(s): Yes: Other (not examined) Musculoskeletal: Yes: WNL Extremities: Yes: WNL. No: Calf Tenderness Edema: No Integumentary: Yes: Tattoos Neurological: Yes: WNL ...Motor Strength: WNL Psychiatric: Yes: WNL Labs: CBC, BMP 09/21/17 05:00 09/21/17 05:00 Laboratory Tests 09/21/17 09/21/17 05:00 05:00 AST 21 ALT 36 Urine Protein Negative Urine Nitrite Negative Ur Leukocyte Esterase Negative Problem List - Problems (1) with 16 completed weeks gestation Code(s): Z3A.16 - 16 WEEKS GESTATION OF (2) with abdominal pain of right lower quadrant, antepartum Code(s): O99.89 - OTH DISEASES AND CONDITIONS COMPL PREG/CHLDBRTH; R10.31 - RIGHT LOWER QUADRANT PAIN (3) Uterine fibroid complicating care, baby not yet delivered in second trimester Code(s): O34.12 - MATERNAL CARE FOR BENIGN TUMOR OF CORPUS UTERI, SECOND TRI; D25.9 - LEIOMYOMA OF UTERUS, UNSPECIFIED Assessment/Plan 27 yrs 16.4 weeks gestation with fundal fibroid enlarging during pregnacy, possible degenration is cause of Rlq, rmq pain adjacent to cecum . appendicitis is ruled out recommend: Iv Hydration no need antibiotics tylenol prn for pain
[2017-09-21] MEDS: SODIUM CHLORIDE 1,000 ML IV SCH (21:00)
[2017-09-22] MEDS: ACETAMINOPHEN 325 MG TABLET (FP) PO PRN ×2 (01:11→10:43)
[2017-09-22] MEDS: SODIUM CHLORIDE 1,000 ML IV SCH (07:48)
--- NOTE | 2017-09-22 07:54 | PN ---
Physical Exam: SUBJECTIVE: Patient seen and examined OBJECTIVE: Vital Signs Period Temp Pulse Resp BP Sys/Skelton Pulse Ox Last 24 Hr 95.5 F-97.9 F 68-76 20-20 94-104/47-60 95-100 GENERAL: The patient is awake, alert, and fully oriented, in no acute distress. HEAD: Normal with no signs of trauma. EYES: PERRL, extraocular movements intact, sclera anicteric, conjunctiva clear. No ptosis. ENT: Ears normal, nares patent, oropharynx clear without exudates, moist mucous membranes. NECK: Trachea midline, full range of motion, supple. LUNGS: Breath sounds equal, clear to auscultation bilaterally, no wheezes, no crackles, no accessory muscle use. HEART: Regular rate and rhythm, S1, S2 without murmur, rub or gallop. ABDOMEN: Soft, nontender, nondistended, normoactive bowel sounds, no guarding, no rebound, no hepatosplenomegaly, no masses. EXTREMITIES: 2+ pulses, warm, well-perfused, no edema. NEUROLOGICAL: Cranial nerves II through XII grossly intact. Normal speech, gait not observed. PSYCH: Normal mood, normal affect. SKIN: Warm, dry, normal turgor, no rashes or lesions noted Laboratory Results - last 24 hr 09/21/17 05:00 Blood Type O POSITIVE Antibody Screen Negative Active Medications Generic Name Dose Route Start Last Admin Trade Name Freq PRN Reason Stop Dose Admin Acetaminophen 650 mg 09/21/17 19:14 09/22/17 01:11 Tylenol - PO 650 mg Q6H PRN Administration PAIN Sodium Chloride 1,000 mls @ 150 mls/hr 09/21/17 19:15 09/22/17 07:48 Normal Saline - IV 150 mls/hr ASDIR JASON Administration ASSESSMENT/PLAN:
[2017-09-22 08:17] LABS: HEMATOCRIT 32.5 % (32.4-45.2); HEMOGLOBIN 10.8 GM/dL (10.7-15.3); MCH 25.6 pg (25.7-33.7); MCHC 33.3 g/dl (32.0-36.0); MEAN CELL VOLUME 76.8 fl (80-96); MEAN PLT VOLUME 9.1 fl (7.5-11.1); PLATELET COUNT 359 K/MM3 (134-434); RBC 4.23 M/mm3 (3.60-5.2); RDW 14.2 % (11.6-15.6); WHITE BLOOD COUNT 12.4 K/mm3 (4.0-10.0)
[2017-09-22 08:25] LABS: ANION GAP 9 (8-16); BLOOD UREA NITROGEN 4 mg/dL (7-18); CALCIUM 8.3 mg/dL (8.5-10.1); CHLORIDE 107 mmol/L (98-107); CO2 23 mmol/L (21-32); CREATININE 0.5 mg/dL (0.55-1.02); GLUCOSE,RANDOM 75 mg/dL (74-106); PHOSPHOROUS 3.5 mg/dL (2.5-4.9); SODIUM 139 mmol/L (136-145)
[2017-09-22 10:22] LABS: PLATELET ESTIMATE NORMAL
--- NOTE | 2017-09-22 10:32 | PN ---
Progress Note (short form) - Note Progress Note: 16 weeks gestation with RMQ pain / fibroid degenration ass no fever, No vomiting , no dizziness .No cramps tolerated the food breakfast. feels hungry pt states she had pain scale of 9/10 last night at 1.00 am she took 2 tyleno, helped little presently pain scale 7/10, , she feels pain when she moves c/o gas discomfort, passing flatus, she is afraid to do BM, requests for stool softner she does d not fell FM yet . Selected Entries 09/22/17 06:01 Temperature 97.9 F Pulse Rate 70 Blood Pressure 102/60 p/a 18 weks size ut, tenderness deep on RMQ adjacent to uterine fundus lower in uterurs no overlying tenderness FHS suprapubic in midline 152 bpm with doppler audible Laboratory Tests 09/22/17 09/22/17 07:40 07:40 WBC 12.4 H Hgb 10.8 Hct 32.5 MCV 76.8 L Plt Count 359 Neutrophils % (Manual) 66.3 Sodium 139 Potassium 4.0 Carbon Dioxide 23 BUN 4 L Creatinine 0.5 L Random Glucose 75 ass : 16 weeks pregn with possible fibroid degenration is the cause of pain pt declines narcotics, , offerred Endocide for fibroid pain , works better, she asked, side effects, , I told her if continue to use , during late , premature closure of PDA can occur, she refused endocide she will take po tylenol again , Po prune juice . she is considering to be discharged & she will follow with her MD at [facility] Problem List - Problems (1) with 16 completed weeks gestation Code(s): Z3A.16 - 16 WEEKS GESTATION OF (2) with abdominal pain of right lower quadrant, antepartum Code(s): O99.89 - OTH DISEASES AND CONDITIONS COMPL PREG/CHLDBRTH; R10.31 - RIGHT LOWER QUADRANT PAIN (3) Uterine fibroid complicating care, baby not yet delivered in second trimester Code(s): O34.12 - MATERNAL CARE FOR BENIGN TUMOR OF CORPUS UTERI, SECOND TRI; D25.9 - LEIOMYOMA OF UTERUS, UNSPECIFIED
--- NOTE | 2017-09-22 12:17 | PN ---
Progress Note, Physician Chief Complaint: abdominal pain History of Present Illness: 27yo female 16weeks gestation no significant PMH presents to the the ED complaining of 2 days or right lower quadrant pain. MRI crosssection was able to help distinguish between appendicitis and a large degenerating fibroid in the same vicinity without the need for laparoscopy. - Current Medication List Current Medications: Active Medications Acetaminophen (Tylenol -) 650 mg PO Q6H PRN PRN Reason: PAIN Last Admin: 09/22/17 10:43 Dose: 650 mg Sodium Chloride (Normal Saline -) 1,000 mls @ 150 mls/hr IV ASDIR JASON Last Admin: 09/22/17 07:48 Dose: 150 mls/hr - Objective Vital Signs: Vital Signs Temperature 97.9 F 09/22/17 06:01 Pulse Rate 87 09/22/17 10:00 Respiratory Rate 18 09/22/17 10:00 Blood Pressure 80/50 09/22/17 10:00 O2 Sat by Pulse Oximetry (%) 96 09/22/17 03:11 Vital Signs Period Temp Pulse Resp BP Sys/Skelton Pulse Ox Last 24 Hr 95.5 F-97.9 F 69-87 18-20 80-104/47-60 95-96 Constitutional: Yes: No Distress, Calm, Obese Eyes: Yes: Conjunctiva Clear, EOM Intact HENT: Yes: Atraumatic, Normocephalic Neck: Yes: Supple, Trachea Midline Cardiovascular: Yes: Regular Rate and Rhythm, S1, S2 Respiratory: Yes: Regular, CTA Bilaterally Gastrointestinal: Yes: Normal Bowel Sounds, Soft, Abdomen, Obese, Tenderness ( RLQ just lateal to the umbilicus), Tenderness, Rebound ...Rectal Exam: Yes: Deferred Genitourinary: No: CVA Tenderness - Left, CVA Tenderness - Right Musculoskeletal: No: Muscle Pain, Muscle Weakness Extremities: No: Cold, Cool Edema: No Peripheral Pulses WNL: Yes Integumentary: No: Jaundice, Rash Wound/Incision: Yes: Well Approximated Neurological: Yes: Alert, Oriented Psychiatric: Yes: Alert, Oriented Labs: CBC, BMP 09/22/17 07:40 09/22/17 07:40 Problem List - Problems (1) complicated by acute appendicitis Assessment/Plan: 27 yo female 16weeks gestation RLQ pain possible acute appendicitis, leukocytois 11.5--12.4 off antibiotics, not visualized on US, Adjacent is her peduculated subserosal right uterine fibroid 4.5cm to 7cm over the course of a year. MRI shows degeneration. This is the more likely source of abdominal discomfort. No acute general surgical intervention. Defer all management to BUILDING WRECK[facility] team. We are available as needed. Diet as tolerated Consider IV antibiotics Agree with BUILDING WRECKER plan Will follow peripherally Code(s): O99.619 - DISEASES OF THE DGSTV SYS COMP , UNSP TRIMESTER; K35.80 - UNSPECIFIED ACUTE APPENDICITIS (2) Acute appendicitis with localized peritonitis Code(s): K35.3 - ACUTE APPENDICITIS WITH LOCALIZED PERITONITIS (3) Abdominal pain Code(s): R10.9 - UNSPECIFIED ABDOMINAL PAIN Qualifiers: Abdominal location: right lower quadrant Qualified Code(s): R10.31 - Right lower quadrant pain (4) Ovarian mass, right Code(s): N83.9 - NONINFLAMMATORY DISORD OF OVARY, FALLOP & BROAD LIGMT, UNSP
[2017-09-22 12:34] LABS: BASO % 0.4 % (0-2.0); EOS % 0.8 % (0-4.5); HEMATOCRIT 32.5 % (32.4-45.2); HEMOGLOBIN 10.8 GM/dL (10.7-15.3); LYMPH % 13.6 % (8-40); MCH 25.3 pg (25.7-33.7); MCHC 33.1 g/dl (32.0-36.0); MEAN CELL VOLUME 76.5 fl (80-96); MEAN PLT VOLUME 9.3 fl (7.5-11.1); MONO % 10.9 % (3.8-10.2); NEUT % 74.3 % (42.8-82.8); PLATELET COUNT 373 K/MM3 (134-434); RBC 4.25 M/mm3 (3.60-5.2); RDW 14.4 % (11.6-15.6); WHITE BLOOD COUNT 11.7 K/mm3 (4.0-10.0)
[2017-09-22 13:25] VITALS: BP 133/48; PULSE 81; TEMP 98.7
--- NOTE | 2017-09-22 13:44 | DS ---
Physical Exam: SUBJECTIVE: Patient seen and examined OBJECTIVE: Vital Signs Period Temp Pulse Resp BP Sys/Skelton Pulse Ox Last 24 Hr 95.5 F-98.7 F 69-87 18-20 80-133/48-60 95-96 PHYSICAL EXAM GENERAL: sitting in bed, nad HEENT: sclera anicteric, conjunctiva clear, mmm LUNGS: CTAB HEART: rrr, normal s1/s2, no m/r/g ABDOMEN: soft, distended, +mild RLQ, no guarding or rebound tenderness, + positive bowel sounds EXTREMITIES: no edema, wwp LABS Laboratory Results - last 24 hr 09/22/17 09/22/17 09/22/17 07:40 07:40 11:25 WBC 12.4 H 11.7 H RBC 4.23 4.25 Hgb 10.8 10.8 Hct 32.5 32.5 MCV 76.8 L 76.5 L MCH 25.6 L 25.3 L MCHC 33.3 33.1 RDW 14.2 14.4 Plt Count 359 373 MPV 9.1 9.3 Neutrophils % 74.3 Neutrophils % (Manual) 66.3 Band Neutrophils % 0.0 Lymphocytes % 13.6 Lymphocytes % (Manual) 19.4 Monocytes % 10.9 H Monocytes % (Manual) 9 Eosinophils % 0.8 Eosinophils % (Manual) 3.1 Basophils % 0.4 Basophils % (Manual) 1.0 Myelocytes % (Man) 0 Promyelocytes % (Man) 0 Blast Cells % (Manual) 0 Nucleated RBC % 1 H Metamyelocytes 0 Platelet Estimate Normal Sodium 139 Potassium 4.0 Chloride 107 Carbon Dioxide 23 Anion Gap 9 BUN 4 L Creatinine 0.5 L Random Glucose 75 Calcium 8.3 L Phosphorus 3.5 Magnesium 2.0 Microbiology 09/21/17 05:00 Urine - Urine Clean Catch Urine Culture - Less than 10,000 CFU HOSPITAL COURSE: Date of Admission:09/21/17 Date of Discharge: 09/22/17 Pre-Hospital Course: 27 yof with PMhx of uterine fibroid, 16 weeks , admitted with RLQ abdominal pain, and mild LLQ abdominal pain shifting to right, crampy, constant for last 2 days. No nausea, vomiting, fevers, chills, urinary symptoms. Able to tolerate diet well. 12 point ROS done, neg for any vaginal bleed, discharge or new concerns. Currently feels better after being treated in the ED. Subsequent Hospital Course: Consults: GLASS WORKER: Imaging: Discharge Summary Reason For Visit: LEIOMYOMA,ABD PAIN 16 WEEKS , PERITONITIS Current Active Problems Abdominal pain (Acute) Acute appendicitis with localized peritonitis (Acute) Leiomyoma (Acute) Peritonitis (Acute) (Acute) complicated by acute appendicitis (Acute) with 16 completed weeks gestation (Acute) with abdominal pain of right lower quadrant, antepartum (Acute) Uterine fibroid complicating care, baby not yet delivered in second trimester (Acute) Condition: Stable - Instructions Diet, Activity, Other Instructions: You were observed in the hospital for abdominal pain. MRI of your abdomen and pelvis found that you have leiomyoma in your uterus, that appears to have increased in size since your last scan here in 2017. It is currently estimated to be 7.8 x 7.3 x 6cm in size. Medications: You can take Tylenol 650mg every 6 hours as needed for pain. Do not exceed more than 4000mg per day. Follow-ups: Make an appointment to see your Semiconductor Processor at [facility] tomorrow. It is very important that you see Semiconductor Processor as soon as possible. Bring the CDs to the appointment, which contain the imaging studies performed here. Please return to the Emergency Department if you have new, worsening or concerning symptoms, any fevers, or chills, if belly pain doesn't improve or worsens, nausea, vomiting, inability to eat or any new concerns. Referrals: Martínez Larson MD [Primary Care Provider] - Disposition: HOME - Home Medications Comprehensive Discharge Medication List: Ambulatory Orders Acetaminophen [Tylenol .Regular Strength -] 650 mg PO Q6H PRN tablet 09/22/17
--- NOTE | 2017-09-22 13:58 | PN ---
Teaching Attending Note Name of Resident: Anabel Mariano ATTENDING PHYSICIAN STATEMENT I saw and evaluated the patient. I reviewed the resident's note and discussed the case with the resident. I agree with the resident's findings and plan as documented with exceptions below. SUBJECTIVE: Patient seen and examined, pain improved. no new concerns, fevers, chills, nausea, vomiting. Tolerating diet well. OBJECTIVE: Vital Signs Period Temp Pulse Resp BP Sys/Skelton Pulse Ox Last 24 Hr 95.5 F-98.7 F 69-87 18-20 80-133/48-60 95-96 Intake & Output 09/19/17 09/20/17 09/21/17 09/22/17 23:59 23:59 23:59 23:59 Intake Total 300 2075 Balance 300 2075 Weight 160 lb 0.008 oz General: lying in bed in no acute distress Abdomen: soft, distended, RLQ tenderness improved from yesterday, no voluntary or involuntary guarding or rigidity, No LLQ tenderness today, positive bowel sounds Laboratory Results - last 24 hr 09/22/17 09/22/17 09/22/17 07:40 07:40 11:25 WBC 12.4 H 11.7 H RBC 4.23 4.25 Hgb 10.8 10.8 Hct 32.5 32.5 MCV 76.8 L 76.5 L MCH 25.6 L 25.3 L MCHC 33.3 33.1 RDW 14.2 14.4 Plt Count 359 373 MPV 9.1 9.3 Neutrophils % 74.3 Neutrophils % (Manual) 66.3 Band Neutrophils % 0.0 Lymphocytes % 13.6 Lymphocytes % (Manual) 19.4 Monocytes % 10.9 H Monocytes % (Manual) 9 Eosinophils % 0.8 Eosinophils % (Manual) 3.1 Basophils % 0.4 Basophils % (Manual) 1.0 Myelocytes % (Man) 0 Promyelocytes % (Man) 0 Blast Cells % (Manual) 0 Nucleated RBC % 1 H Metamyelocytes 0 Platelet Estimate Normal Sodium 139 Potassium 4.0 Chloride 107 Carbon Dioxide 23 Anion Gap 9 BUN 4 L Creatinine 0.5 L Random Glucose 75 Calcium 8.3 L Phosphorus 3.5 Magnesium 2.0 Microbiology 09/21/17 05:00 Urine - Urine Clean Catch Urine Culture - Final ASSESSMENT AND PLAN: 27 yof with uterine fibroid and 16 weeks admitted with abdominal pain. -Abdominal pain, shifting RLQ/LLQ -16 weeks -Pedunculated uterine leimyoma with degenerative changes. Pain improved. WBC stable, no new fevers/chills or concerns. Surgery/OB input noted. Discussed with ysabel Garcia for d/c with outpatient follow up with her [facility] as discussed with her. D/c home today with close outpatient ob follow up. Plan discussed with patient in detail, all questions answered. Advised to come to ED or call 911 if any new fevers, chills, worsening pain, new symptoms of pain, vomiting/diarrhea/inability to eat or failure for symptoms to fully resolve. Patient relays understanding of the same and agrees to comply.
== END 2017-09-22 16:16 | disposition home or self-care (01) ==
LOC: JER 04:02 → JERBED 15:23 → J6S 17:55
PROVIDERS: ADMIT Obstetrics & Gynecology; ATTEND Hospitalist
PROC: 3E03329 Introduction of Other Anti-infective into Peripheral Vein, Percutaneous Approach (ICD-10-PCS; principal; 2017-09-21)
PROC: 3E033NZ Introduction of Analgesics, Hypnotics, Sedatives into Peripheral Vein, Percutaneous Approach (ICD-10-PCS; 2017-09-21)
PROC: 3E0337Z Introduction of Electrolytic and Water Balance Substance into Peripheral Vein, Percutaneous Approach (ICD-10-PCS; 2017-09-21)
DX: O99.89 Other specified diseases and conditions complicating pregnancy, childbirth and the puerperium (principal); O34.12 Maternal care for benign tumor of corpus uteri, second trimester; O26.892 Other specified pregnancy related conditions, second trimester; Z3A.16 16 weeks gestation of pregnancy; R10.31 Right lower quadrant pain; K65.8 Other peritonitis; D25.9 Leiomyoma of uterus, unspecified; N83.9 Noninflammatory disorder of ovary, fallopian tube and broad ligament, unspecified
CPT/HCPCS: 36415; 72195-TC; 76700-TC; 76801-TC; 80048; 80053; 81003; 83605; 83690; 83735; 84100; 84702; 85025; 85027; 86850; 86900; 86901; 87086; 96365; 96375; 99285-25; G0378; J7030

== ENCOUNTER 2018-09-24 23:36 | Emergency (ER) | payer OTHER ==
[2018-09-25] VITALS: TEMP 98.2; BMI 37.2
[2018-09-25] MEDS ORDERED: SODIUM CHLORIDE 1,000 ML IV STA (00:41)
[2018-09-25] MEDS ORDERED: ONDANSETRON 4 MG/2 ML VIAL IVPUSH ONE (00:41)
[2018-09-25] MEDS ORDERED: MAG HYDROX/AL HYDROX/SIMETH 30 ML UNIT-DOSE CUP PO ONE (00:41)
[2018-09-25] MEDS ORDERED: FAMOTIDINE 20 MG/50 ML IVPB 20 MG/50 ML MG IVPB ONE (00:41)
[2018-09-25] MEDS ORDERED: SUCRALFATE 1 GM/10 ML UNIT DOSE CUPS PO ONE (00:41)
--- NOTE | 2018-09-25 00:51 | PDOC ---
History of Present Illness - History of Present Illness Initial Comments: 09/25/18 00:42 28 yo F with h/o fibroids who p/w vomiting, abdominal pain, diarrhea. Pt. reports acute onset of multiple NBNB emesis beginning yesterday evening, now improved and worse with PO intake. Endorses decreased PO intake, crampy midepigastric abdominal pain worse with PO intake, and multiple loose stools beginning yesterday, now resolved. Patient endorses diffuse dull headache. Arrives from [facility] ( urgent care/[facility] MD). Denies symptom management with OTC medication. Reports symptom onset following PO intake of "Chipotle," yesterday evening. Denies recent travels, sick contacts, hiking/camping. Patient denies MORENO, vision change, palpitations, cough, wheezing, orthopena, PND , leg swelling/pain, F,C, CP, SOB, urinary complaints, hematuria, BPR, constipation, lightheadedness, weakness, sensory changes. PMHx: as noted above ROS: as noted SHx: Denies IVDA Allergies: NKDA <Andi Quiroz - Last Filed: 09/25/18 01:57> <Karol Ray - Last Filed: 09/25/18 02:26> - General Chief Complaint: Cold Symptoms Stated Complaint: FLU Time Seen by Provider: 09/25/18 00:15 Past History - Past Medical History COPD: No - Reproductive History (#): 1 Para: 0 - Suicide/Smoking/Psychosocial Hx Smoking History: Never smoked Have you smoked in the past 12 months: No Information on smoking cessation initiated: No Hx Alcohol Use: No Drug/Substance Use Hx: No Substance Use Type: None <Andi Quiroz - Last Filed: 09/25/18 01:57> <Karol Ray - Last Filed: 09/25/18 02:26> - Past Medical History Allergies/Adverse Reactions: Allergies Allergy/AdvReac Type Severity Reaction Status Date / Time fruit Allergy Intermediate Rash Uncoded 09/25/18 00:00 Home Medications: Ambulatory Orders One Tablet 1 tablet PO DAILY 11/09/17 Terconazole [Terazol 7] 45 gm VG HS #1 cream.appl 11/09/17 Review of Systems - Review of Systems Comments:: 09/25/18 00:53 GENERAL/CONSTITUTIONAL: No fever or chills. No weakness. HEAD, EYES, EARS, NOSE AND THROAT: No change in vision. No ear pain or discharge. No sore throat. CARDIOVASCULAR: No chest pain or shortness of breath RESPIRATORY: No cough, wheezing, or hemoptysis. GASTROINTESTINAL: +nausea, vomiting, diarrhea. No constipation. GENITOURINARY: No dysuria, frequency, or change in urination. MUSCULOSKELETAL: No joint or muscle swelling or pain. No neck or back pain. SKIN: No rash NEUROLOGIC: + headache. No vertigo, loss of consciousness, or change in strength /sensation. ENDOCRINE: No increased thirst. No abnormal weight change HEMATOLOGIC/LYMPHATIC: No anemia, easy bleeding, or history of blood clots. ALLERGIC/IMMUNOLOGIC: No hives or skin allergy. <Andi Quiroz - Last Filed: 09/25/18 01:57> *Physical Exam - Vital Signs Last Vital Signs Temp Pulse Resp BP Pulse Ox 98.2 F 62 18 126/82 100 09/24/18 23:58 09/24/18 23:58 09/24/18 23:58 09/24/18 23:58 09/24/18 23:58 - Physical Exam Comments: 09/25/18 00:54 GENERAL: Awake, alert, and fully oriented, in no acute distress HEAD: No signs of trauma, normocephalic, atraumatic EYES: PERRLA, EOMI, sclera anicteric, conjunctiva clear ENT: Auricles normal inspection, hearing grossly normal, nares patent, oropharynx clear without exudates. Moist mucosa NECK: Normal ROM, supple, no lymphadenopathy, JVD, or masses LUNGS: No distress, speaks full sentences, clear to auscultation bilaterally HEART: Regular rate and rhythm, normal S1 and S2, no murmurs, rubs or gallops, peripheral pulses normal and equal bilaterally. ABDOMEN: + RUQ and epigastria ttp. Soft, NDS, normoactive bowel sounds. No guarding, no rebound. No masses. Neg CVA ttp. EXTREMITIES : Normal inspection, Normal range of motion, no edema. No clubbing or cyanosis. NEUROLOGICAL: Cranial nerves II through XII grossly intact. Normal speech, normal gait, no focal sensorimotor deficits SKIN: Warm, Dry, normal turgor, no rashes or lesions noted <Andi Quiroz - Last Filed: 09/25/18 01:57> - Vital Signs Last Vital Signs Temp Pulse Resp BP Pulse Ox 98.2 F 62 18 126/82 100 09/24/18 23:58 09/24/18 23:58 09/24/18 23:58 09/24/18 23:58 09/24/18 23:58 <Karol Ray - Last Filed: 09/25/18 02:26> ED Treatment Course - ADDITIONAL ORDERS Additional order review: 09/25/18 01:57 Patient Information: : 1990 Order Type: Preliminary Name: JOSE MARIE Sex: F Study Description: US ABDOMEN LIMITED Modality: US Location: [facility] Referring Physician: YONATAN ALDRIDGE Comments: Genaro Veronica MD wrote on Sep 25, 2018 at 01:49 AM: Referring Physician: YONATAN ALDRIDGE Patient Name: FRANK GOMEZN THIS IS A PRELIMINARY REPORT FROM IMAGING TABLET MACHINE OPERATOR DATE OF SERVICE: 2018-09-25 01:02:15 IMAGES: 63 EXAM: ABDOMEN US -LIMITED , right upper quadrant and limited abdominal duplex HISTORY: Right upper quadrant pain COMPARISON: None. FINDINGS: Right upper quadrant ultrasound:The liver is normal, without mass or biliary duct dilation. The gallbladder is normal. The CBD is not dilated and measures4 millimeters in diameter. Right kidney measures 11.4centimeters in length and is unremarkable. The visualized aorta and IVC are normal. Pancreas is partially obscured, but appears normal. Abdominal duplex: The main portal vein demonstrates normal hepatopedal flow. IMPRESSION: Normal exam CONFIDENTIALITY NOTICE: This informat <Andi Quiroz - Last Filed: 09/25/18 01:57> Medical Decision Making - Medical Decision Making 09/25/18 00:51 28 yo F with h/o fibroids who p/w vomiting, abdominal pain, diarrhea. Vitals wnl , AF, A&OX3. RUQ and midepigastric ttp on physical exam. Will consider biliary dz., pancreatitis, esophagitis, gastritis, enteritis, gastroenteritis, colitis. Will provide adequate fluid resuscitation, analgesic control, and anti-emetic control. ED Course: Tylenol, Famotidine, Zofran, NS 09/25/18 01:57 FINDINGS: Right upper quadrant ultrasound:The liver is normal, without mass or biliary duct dilation. The gallbladder is normal. The CBD is not dilated and measures4 millimeters in diameter. Right kidney measures 11.4centimeters in length and is unremarkable. The visualized aorta and IVC are normal. Pancreas is partially obscured, but appears normal. Abdominal duplex: The main portal vein demonstrates normal hepatopedal flow. IMPRESSION: Normal exam Patient pending labs, medication endorsed to night team. <Andi Quiroz - Last Filed: 09/25/18 01:57> - Medical Decision Making 09/25/18 02:26 Patient Name: FRANK GARCIA THIS IS A PRELIMINARY REPORT FROM IMAGING TABLET MACHINE OPERATOR DATE OF SERVICE: 2018-09-25 01:02:15 IMAGES: 63 EXAM: ABDOMEN US -LIMITED , right upper quadrant and limited abdominal duplex HISTORY: Right upper quadrant pain COMPARISON: None. FINDINGS: Right upper quadrant ultrasound:The liver is normal, without mass or biliary duct dilation. The gallbladder is normal. The CBD is not dilated and measures4 millimeters in diameter. Right kidney measures 11.4centimeters in length and is unremarkable. The visualized aorta and IVC are normal. Pancreas is partially obscured, but appears normal. Abdominal duplex: The main portal vein demonstrates normal hepatopedal flow. IMPRESSION: Normal exam <Karol Ray - Last Filed: 09/25/18 02:26> *DC/Admit/Observation/Transfer <Valdo Quirozson - Last Filed: 09/25/18 01:57> <Karol Ray - Last Filed: 09/25/18 02:26> Diagnosis at time of Disposition: Epigastric pain, Abdominal pain with vomiting - Discharge Dispostion Condition at time of disposition: Stable - Patient Instructions Printed Discharge Instructions: DI for Viral Gastroenteritis -- Adult Additional Instructions: Please return to the emergency department with any new or worsening symptoms or concerns. Please follow up with your primary care physician within 72 hours.
[2018-09-25] MEDS ORDERED: SUCRALFATE 1 GM TABLET (FP) ONE (01:07)
--- NOTE | 2018-09-25 01:59 | PDOC ---
Documentation entered by Sylvie Jenkins SCRIBE, acting as scribe for Flakita Jack MD. Flakita Jack MD: This documentation has been prepared by the scribe, Sylvie Jenkins SCRIBE, under my direction and personally reviewed by me in its entirety. I confirm that the documentation accurately reflects all work, treatment, procedures, and medical decision making performed by me. Attending Attestation - Resident Resident Name: Andi Quiroz - ED Attending Attestation I have performed the following: I have examined & evaluated the patient, The case was reviewed & discussed with the resident, I agree w/resident's findings & plan - HPI HPI: 09/25/18 01:58 Ms. Bruno is a 28 year old female with past medical history significant for Fibroids presents to the emergency department with vomiting, abdominal pain and diarrhea. The patient presents with a sudden onset of multiple episodes of NBNB vomiting, thats aggravated with PO intake, that presented after eating chipotle. The patient reports associated symptoms of decreased PO intake, abdominal cramping thats aggravated with food, along with multiple episode of loose stool, and headache. Denies fever, chills, sick contact, or recent travel. - Physicial Exam PE: 09/25/18 01:59 Agree with the resident's HPI and PE as documented in the electronic medical record. NAD, well appearing, PERRL, EOMI, MMM, nl conjunctiva, anicteric; neck supple. lungs clear, RRR, abdomen soft mild epigastric TTP, no rebound or guarding, neg murphys no RLQ tenderness. MIXON x4, no focal neuro deficits. No peripheral edema. normal color for ethnicity, WWP. 09/25/18 02:24 - Medical Decision Making 09/25/18 01:59 hpi as documented VS reviewed, wnl abdomen US negative for pathology basic labs and lytes, lipase GI cocktail, reassess s/o Dr Ray pending ultimate dispo, labs and reeval. 09/25/18 02:24
[2018-09-25 02:44] LABS: BASO % 0.5 % (0-2.0); EOS % 1.2 % (0-4.5); HEMOGLOBIN 11.8 GM/dL (10.7-15.3); LYMPH % 32.8 % (8-40); MCH 24.1 pg (25.7-33.7); MCHC 32.9 g/dl (32.0-36.0); MEAN CELL VOLUME 73.3 fl (80-96); MEAN PLT VOLUME 8.6 fl (7.5-11.1); MONO % 11.7 % (3.8-10.2); NEUT % 53.8 % (42.8-82.8); PLATELET COUNT 407 K/MM3 (134-434); RBC 4.92 M/mm3 (3.60-5.2); RDW 15.4 % (11.6-15.6); WHITE BLOOD COUNT 6.3 K/mm3 (4.0-10.0)
[2018-09-25 03:14] LABS: ALBUMIN 3.5 g/dl (3.4-5.0); ALK PHOS 141 U/L (45-117); ANION GAP 5 MMOL/L (8-16); BILIRUBIN,TOTAL 0.3 mg/dL (0.2-1); BLOOD UREA NITROGEN 6 mg/dL (7-18); CHLORIDE 103 mmol/L (98-107); CO2 28 mmol/L (21-32); CREATININE 0.5 mg/dL (0.55-1.3); GLUCOSE,RANDOM 108 mg/dL (74-106); LIPASE 72 U/L (73-393); POTASSIUM 3.7 mmol/L (3.5-5.1); SGOT/AST 17 U/L (15-37); SGPT/ALT 27 U/L (13-61); SODIUM 136 mmol/L (136-145); TOT PROT 7.7 g/dl (6.4-8.2)
[2018-09-25 04:11] VITALS: BP 123/80; PULSE 60
== END 2018-09-25 04:12 | disposition home or self-care (01) ==
LOC: JER 23:36
PROC: 3E0337Z Introduction of Electrolytic and Water Balance Substance into Peripheral Vein, Percutaneous Approach (ICD-10-PCS; principal; 2018-09-24)
PROC: 3E033GC Introduction of Other Therapeutic Substance into Peripheral Vein, Percutaneous Approach (ICD-10-PCS; 2018-09-24)
PROC: 3E033GC Introduction of Other Therapeutic Substance into Peripheral Vein, Percutaneous Approach (ICD-10-PCS; 2018-09-24)
DX: A08.4 Viral intestinal infection, unspecified (principal); B97.89 Other viral agents as the cause of diseases classified elsewhere
CPT/HCPCS: 36415; 76705-TC; 80053; 83690; 84703; 85025; 96361; 96365; 96375; 99282-25; J7030

== ENCOUNTER 2018-11-30 18:28 | Emergency (ER) | payer OTHER ==
[2018-11-30] MEDS ORDERED: KETOROLAC TROMETHAMINE 60 MG/2 ML VIAL IM ONE (18:47)
[2018-11-30 19:06] VITALS: BMI 37.0
[2018-11-30] MEDS ORDERED: KETOROLAC TROMETHAMINE 60 MG/2 ML VIAL ONE (19:18)
[2018-11-30] MEDS ORDERED: ACETAMINOPHEN 325 MG TABLET (FP) PO ONE (19:22)
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
[2018-11-30] MEDS ORDERED: ACETAMINOPHEN 325 MG TABLET (FP) ONE (19:36)
[2018-11-30 22:38] VITALS: BP 120/76; PULSE 86; TEMP 98.1
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
== END 2018-11-30 22:42 | disposition home or self-care (01) ==
LOC: JERFT 18:28
DX: S06.0X0A Concussion without loss of consciousness, initial encounter (principal); W50.0XXA Accidental hit or strike by another person, initial encounter; Y93.89 Activity, other specified; Y92.89 Other specified places as the place of occurrence of the external cause
CPT/HCPCS: 70450-TC; 70486-TC; 84703; 99281-25

== ENCOUNTER 2020-06-17 19:03 | Emergency (ER) | payer OTHER ==
[2020-06-17 19:13] VITALS: BP 130/80; PULSE 99; TEMP 98.7; BMI 33.1
== END 2020-06-17 20:17 | disposition home or self-care (01) ==
LOC: JER 19:03
DX: R05 Cough (principal)
CPT/HCPCS: 99283-25; C9803; U0003

== ENCOUNTER 2024-08-12 12:54 | Emergency (ER) | payer OTHER ==
[2024-08-12 13:08] VITALS: BP 110/65; PULSE 89; RESP 20; TEMP 98.5; BMI 33.6
[2024-08-12] MEDS ORDERED: CycloBENZAprine HCL 10 MG TABLET (FP) ONE (13:48)
[2024-08-12] MEDS ORDERED: LIDOCAINE 4% PATCH TP ONE (13:48)
[2024-08-12] MEDS: LIDOCAINE 4% PATCH TP ONE (13:53)
[2024-08-12] MEDS: CycloBENZAprine HCL 10 MG TABLET (FP) PO ONE (13:54)
[2024-08-12] MEDS ORDERED: KETOROLAC TROMETHAMINE 30 MG/1 ML VIAL ONE (14:00)
[2024-08-12] MEDS: KETOROLAC TROMETHAMINE 30 MG/1 ML VIAL IM ONE (14:09)
== END 2024-08-12 14:43 | disposition home or self-care (01) ==
LOC: JERFT 12:54
PROC: 3E0233Z Introduction of Anti-inflammatory into Muscle, Percutaneous Approach (ICD-10-PCS; principal; 2024-08-12)
DX: M54.31 Sciatica, right side (principal)
CPT/HCPCS: 99284-25

== ENCOUNTER 2024-10-08 03:25 | Emergency (ER) | payer OTHER ==
[2024-10-08 03:39] VITALS: BP 124/84; PULSE 88; RESP 20; TEMP 98.4; BMI 31.7
[2024-10-08] MEDS ORDERED: predniSONE 20 MG TABLET (UD) ONE (04:26)
[2024-10-08] MEDS ORDERED: diphenhydrAMINE HCL 25 MG CAPSULE (FP) PO ONE (04:26)
[2024-10-08] MEDS: diphenhydrAMINE HCL 25 MG CAPSULE (FP) PO ONE (04:29)
[2024-10-08] MEDS: predniSONE 20 MG TABLET (UD) PO ONE (04:29)
[2024-10-08] MEDS: HYDROCORTISONE 1% TOPICAL CREAM 30 GM TUBE TP ONE (05:49)
[2024-10-08] MEDS: ACYCLOVIR 200 MG CAPSULE PO ONE ×2 (05:49→05:50)
[2024-10-08] MEDS: NITROGLYCERIN SUBLINGUAL 1/200 0.3 MG BTL SL ONE (06:35)
== END 2024-10-08 07:00 | disposition home or self-care (01) ==
LOC: JER 03:25
DX: L24.1 Irritant contact dermatitis due to oils and greases (principal)
CPT/HCPCS: 99283-25